=== PATIENT | female | born 1930 | race African-American/Black ===

== ENCOUNTER 2016-07-19 17:22 | Inpatient (IN) | payer MEDICARE ==
--- NOTE | 2016-07-19 19:36 | PDOC H&P ---
History of Present Illness Admission Date/PCP: 07/19/16 17:22 FERNANDA THIBODEAUX Patient complains of: Worsening bilateral leg swelling History of Present Illness: GILA BLISS is a 85 year old female known to my practice who have made weekly visit to the office due to worsening bilateral leg swelling. Despite adjustment in her medication management with regard to diuretics and anti hypertensive medication she continue to deteriorate. Caregiver reported declining functional level due to leg swelling. No chest pain but there is associated exertional shortness of breath. Patient reported 2-3 pillows orthopnea but denied any PND event. Patient and caregiver reported compliance with dietary salt and fluid restriction although caregiver reported noncompliance wit keeping legs elevated. There is worsening difficulty with transfer abilities. No fever, chills, coughing, nausea, vomiting or diarrhea. She does ambulate minimally in recent time with assistance of walker. Past Medical History Cardiac Medical History: Reports: Hypertension Musculoskeltal Medical History: Reports: Arthritis - Osteoarthritis Psychiatric Medical History: Reports: Depression Past Surgical History Past Surgical History: Reports: Orthopedic Surgery - bilateral knee replacement , hip Social History Smoking Status: Never Smoker Frequency of Alcohol Use: Occasional Hx Recreational Drug Use: No Family History Family History: Reviewed & Not Pertinent Parental Family History Reviewed: Yes Children Family History Reviewed: Yes Sibling(s) Family History Reviewed.: Yes Medication/Allergy Home Medications: Amlodipine Besylate [Norvasc 10 mg Tablet] 10 mg PO DAILY #30 11/22/12 Aspirin [Ecotrin 81 mg EC Tablet] 81 mg PO DAILY #30 tabec 11/22/12 Azilsartan Medoxomil [Edarbi] 80 mg PO DAILY #30 11/22/12 Furosemide [Lasix 20 mg Tablet] 20 mg PO QAM 03/19/14 Lisinopril 20 mg PO DAILY 03/19/14 Allergies/Adverse Reactions: duloxetine HCl [From Cymbalta] Allergy (Unknown, Verified 03/19/14 08:21) oxycodone [Oxycodone] Allergy (Unknown, Verified 03/19/14 08:21) Review of Systems Constitutional: PRESENT: weakness - generalized, weight gain - related to excess fluid. ABSENT: as per HPI, anorexia, chills, fatigue, fever(s), headache (s), night sweats, weight loss, other Eyes: ABSENT: visual disturbances Nose, Mouth, and Throat: ABSENT: as per HPI, headache(s), mouth pain, sore throat, vertigo, other Cardiovascular: PRESENT: dyspnea on exertion, edema. ABSENT: as per HPI, chest pain, orthropnea, palpitations, other Respiratory: PRESENT: dyspnea - with efforts Gastrointestinal: ABSENT: abdominal pain, constipation, diarrhea, hematemesis, hematochezia, nausea, vomiting Genitourinary: ABSENT: as per HPI, difficulty urinating, dysuria, hematuria, nocturia, other Musculoskeletal: PRESENT: deformity - related to arthritis, joint swelling - related to leg swelling Integumentary: ABSENT: rash, wounds Neurological: PRESENT: weakness - generalized. ABSENT: as per HPI, abnormal gait, abnormal movements, abnormal speech, confusion, convulsions, dizziness, focal weakness, frequent falls, lack of coordination, memory loss, numbness, paresthesias, restless legs, syncope, tingling, tremor(s), vertigo, other Psychiatric: ABSENT: anxiety, depression, homidical ideation, suicidal ideation Endocrine: ABSENT: cold intolerance, heat intolerance, polydipsia, polyuria Hematologic/Lymphatic: ABSENT: easy bleeding, easy bruising, lymphadenopathy Physical Exam Vital Signs: Temp Pulse Resp BP Pulse Ox 97.3 F 54 L 18 140/54 H 97 07/19/16 18:35 07/19/16 18:35 07/19/16 18:35 07/19/16 18:35 07/19/16 18:35 Intake & Output 07/18/16 07/19/16 07/20/16 06:59 06:59 06:59 Weight 84 kg General appearance: PRESENT: no acute distress, cooperative Head exam: PRESENT: atraumatic, normocephalic Eye exam: PRESENT: conjunctiva pink, EOMI, PERRLA. ABSENT: scleral icterus Ear exam: PRESENT: normal external ear exam Mouth exam: PRESENT: moist, tongue midline Neck exam: PRESENT: full ROM. ABSENT: carotid bruit, JVD, lymphadenopathy, thyromegaly Respiratory exam: PRESENT: clear to auscultation main Cardiovascular exam: PRESENT: irregular rhythm, systolic murmur. ABSENT: bradycardia, clicks, diastolic murmur, gallop, RRR, rubs, +S1, +S2, tachycardia , other Murmur grade: 3 Pulses: PRESENT: normal dorsalis pedis pul, +2 pedal pulses bilateral Vascular exam: PRESENT: normal capillary refill GI/Abdominal exam: PRESENT: normal bowel sounds, soft. ABSENT: distended, guarding, mass, organolmegaly, rebound, tenderness Rectal exam: PRESENT: deferred Extremities exam: PRESENT: pedal edema - bilateral 3+ pitting edema above knee joint level Musculoskeletal exam: PRESENT: deformity - related to joint involvement with arthritis Neurological exam: PRESENT: alert, awake, oriented to person, oriented to place , oriented to time, oriented to situation, abnormal gait - remain in wheelchair duroing evaluation in office and caregiver reported difficulty transferring in and out of vehicle Psychiatric exam: PRESENT: appropriate affect, normal mood. ABSENT: homicidal ideation, suicidal ideation Skin exam: PRESENT: dry - scaly to legs, warm Results Laboratory Results: Please review on [facility]. These form [id number] part of my medical decision making. Impressions: Chest X-Ray 07/19/16 00:00 IMPRESSION: CARDIAC ENLARGEMENT WITHOUT FAILURE. Assessment & Plan - Diagnosis (1) Acute on chronic systolic (congestive) heart failure Is this a current diagnosis for this admission?: YesPlan: See admitting physician orders. (2) HTN (hypertension) Qualifiers: Hypertension type: essential hypertension Qualified Code(s): I10 - Essential (primary) hypertension Is this a current diagnosis for this admission?: YesPlan: See admitting physician orders. (3) Osteoarthritis involving multiple joints on both sides of body Is this a current diagnosis for this admission?: YesPlan: See admitting physician orders. (4) Chronic pain syndrome Is this a current diagnosis for this admission?: YesPlan: See admitting physician orders. (5) Osteoporosis Qualifiers: Osteoporosis type: age-related Presence of current pathological fracture: unspecified Qualified Code(s): M81.0 - Age-related osteoporosis without current pathological fracture Is this a current diagnosis for this admission?: YesPlan: See admitting physician orders. (6) Degenerative disc disease Qualifiers: Mid-cervical spinal level: unspecified Is this a current diagnosis for this admission?: YesPlan: See admitting physician orders. (7) Unsteady gait Is this a current diagnosis for this admission?: YesPlan: See admitting physician orders. (8) Seasonal allergic rhinitis Qualifiers: Allergic rhinitis trigger: unspecified Qualified Code(s): J30.2 - Other seasonal allergic rhinitis Is this a current diagnosis for this admission?: YesPlan: See admitting physician orders. (9) Chronic gout Qualifiers: Gout site: unspecified site Gout etiology: unspecified cause Presence of tophus: without tophus Qualified Code(s): M1A.9XX0 - Chronic gout, unspecified, without tophus (tophi) Is this a current diagnosis for this admission?: YesPlan: See admitting physician orders. (10) Depression Qualifiers: Depression Type: major depressive disorder Active/Remission status: remission status unspecified Is this a current diagnosis for this admission?: YesPlan: See admitting physician orders. (11) Chronic constipation Is this a current diagnosis for this admission?: YesPlan: See admitting physician orders. - Time Time Spent: 50 to 70 Minutes Medications reviewed and adjusted accordingly: Yes Anticipated discharge: Home with Homehealth Within: Other - Inpatient Certification Based on my medical assessment, after consideration of the patient's comorbidities, presenting symptoms, or acuity I expect that the services needed warrant INPATIENT care.: Yes I certify that my determination is in accordance with my understanding of Medicare's requirements for reasonable and necessary INPATIENT services [42 CFR 412.3e].: Yes Medical Necessity: Failure to Improve With Outpatient Therapy - despite diuretic and anti hypertensive medication adjustment., Need Close Monitoring Due to Risk of Patient Decompensation, Need For Continuous Telemetry Monitoring , Risk of Complication if Not Cared For in Hospital Post Hospital Care: D/C Material Man Documentation - Plan Summary Plan Summary: See admitting physician orders.
[2016-07-19 20:03] LABS: ABSOLUTE EOSINOPHILS # (AUTO) 0.2 10^3/uL (0.0-0.6); ABSOLUTE LYMPHOCYTES (AUTO) 0.9 10^3/uL (0.5-4.7); ABSOLUTE MONOCYTES (AUTO) 0.9 10^3/uL (0.1-1.4); ABSOLUTE NEUT (AUTO) 4.6 10^3/uL (1.7-8.2); BASOPHILS % (AUTO) 0.6 % (0-2); EOSINOPHILS % (AUTO) 2.3 % (0-6); HEMATOCRIT 30.5 % (36.0-47.0); HEMOGLOBIN 9.8 g/dL (12.0-15.5); HGB HCT DIFFERENCE -1.1; LYMPHOCYTES % (AUTO) 14.3 % (13-45); MEAN CORPUSCULAR HGB CONC 32.1 g/dL (32.0-36.0); MEAN CORPUSCULAR VOLUME 69 fl (80-97); MONOCYTES % (AUTO) 13.2 % (3-13); RED BLOOD COUNT 4.46 10^6/uL (3.72-5.28); RED CELL DISTRIBUTION WIDTH 15.3 % (11.5-14.0); SEGMENTED NEUTROPHILS % (AUTO) 69.6 % (42-78); WHITE BLOOD COUNT 6.6 10^3/uL (4.0-10.5)
[2016-07-19 20:27] LABS: ALANINE AMINOTRANSFERASE 23 U/L (9-52); ALBUMIN 3.2 g/dL (3.5-5.0); ALKALINE PHOSPHATASE 166 U/L (38-126); ANION GAP 14 (5-19); ASPARTATE AMINO TRANSFERASE 35 U/L (14-36); BILIRUBIN,DIRECT 0.4 mg/dL (0.0-0.4); BILIRUBIN,TOTAL 0.6 mg/dL (0.2-1.3); BLOOD UREA NITROGEN 82 mg/dL (7-20); CARBON DIOXIDE 19 mmol/L (22-30); CHLORIDE 107 mmol/L (98-107); CREATINE KINASE 151 U/L (30-135); CREATININE RESULT 4.77 mg/dL (0.52-1.25); GLUCOSE 115 mg/dL (75-110); POTASSIUM 4.5 mmol/L (3.6-5.0); SODIUM 139.6 mmol/L (137-145); TOTAL PROTEIN 6.3 g/dL (6.3-8.2); URIC ACID 3.3 mg/dL (2.5-7.5)
[2016-07-19 20:35] LABS: CREATINE KINASE MB 2.1 ng/mL (<4.55); TROPONIN I 0.025 ng/mL
[2016-07-19] MEDS ORDERED: ENOXAPARIN SODIUM INJ 30 MG/0.3 ML DISP.SYRIN SUBCUT ONE (21:30)
[2016-07-19] MEDS: FUROSEMIDE INJ/PF 40 MG/4 ML SDV IV SCH (21:58)
[2016-07-20 09:43] LABS: APPEARANCE,URINE CLEAR; BILIRUBIN,URINE NEGATIVE (NEGATIVE); GLUCOSE, URINE NEGATIVE (NEGATIVE); KETONES,URINE NEGATIVE (NEGATIVE); LEUKOCYTE ESTERASE,URINE TRACE (NEGATIVE); NITRITE,URINE NEGATIVE (NEGATIVE); PROTEIN,URINE 100 mg/dL (NEGATIVE); URINE SPECIFIC GRAVITY 1.006; UROBILINOGEN,URINE NEGATIVE mg/dL (<2.0)
[2016-07-20] MEDS: LANSOPRAZOLE 30 MG TAB.RAP.DR PO SCH (09:55)
[2016-07-20] MEDS: ENOXAPARIN SODIUM INJ 30 MG/0.3 ML DISP.SYRIN SUBCUT SCH (09:56)
[2016-07-20] MEDS: FUROSEMIDE INJ/PF 40 MG/4 ML SDV IV SCH ×2 (10:09→21:57)
--- NOTE | 2016-07-20 13:25 | PDOC PROGRESS REPORT ---
Subjective Progress Note for:: 07/20/16 Subjective:: Patient denied any chest pain or difficulty with breathing. No nausea, vomiting , or abdominal pain. No fever or chills. Leg swelling do persist. Patient reported some degree of pain in both legs prior to admission. She denied any recent trauma, instrumentation, or surgery. Physical Exam Vital Signs: Temp Pulse Resp BP Pulse Ox 98.6 F 59 L 16 108/46 L 96 07/20/16 07:38 07/20/16 07:38 07/20/16 07:38 07/20/16 07:38 07/20/16 07:38 Intake & Output 07/19/16 07/20/16 07/21/16 06:59 06:59 06:59 Intake Total 125 Output Total 1700 Balance -1575 Weight 82.9 kg General appearance: PRESENT: no acute distress, well-developed, well-nourished Head exam: PRESENT: atraumatic, normocephalic Eye exam: PRESENT: conjunctiva pink, EOMI, PERRLA. ABSENT: scleral icterus Neck exam: PRESENT: full ROM. ABSENT: carotid bruit, JVD, lymphadenopathy, thyromegaly Respiratory exam: PRESENT: clear to auscultation main, decreased breath sounds - at lung bases Cardiovascular exam: PRESENT: RRR. ABSENT: diastolic murmur, rubs, systolic murmur Murmur grade: 3 GI/Abdominal exam: PRESENT: normal bowel sounds, soft. ABSENT: distended, guarding, mass, organolmegaly, rebound, tenderness Gentrourinary exam: PRESENT: indwelling catheter Extremities exam: PRESENT: pedal edema - 3+ to above knee levels Musculoskeletal exam: PRESENT: deformity - related to joint involvement with arthritis Neurological exam: PRESENT: alert, awake, oriented to person, oriented to place , oriented to time, oriented to situation, CN II-XII grossly intact Psychiatric exam: PRESENT: appropriate affect, normal mood. ABSENT: homicidal ideation, suicidal ideation Skin exam: PRESENT: dry, warm Results Laboratory Results: 07/19/16 19:50 07/19/16 19:50 07/19/16 07/19/16 07/20/16 19:50 19:50 09:10 WBC 6.6 RBC 4.46 Hgb 9.8 L Hct 30.5 L MCV 69 L MCH 22.0 L MCHC 32.1 RDW 15.3 H Plt Count 196 Seg Neutrophils % 69.6 Lymphocytes % 14.3 Monocytes % 13.2 H Eosinophils % 2.3 Basophils % 0.6 Absolute Neutrophils 4.6 Absolute Lymphocytes 0.9 Absolute Monocytes 0.9 Absolute Eosinophils 0.2 Absolute Basophils 0.0 Sodium 139.6 Potassium 4.5 Chloride 107 Carbon Dioxide 19 L Anion Gap 14 BUN 82 H Creatinine 4.77 H Est GFR ( Amer) 10 L Est GFR (Non-Af Amer) 9 L Glucose 115 H Uric Acid 3.3 Calcium 9.0 Total Bilirubin 0.6 AST 35 ALT 23 Alkaline Phosphatase 166 H Total Protein 6.3 Albumin 3.2 L Urine Color STRAW Urine Appearance CLEAR Urine pH 6.0 Ur Specific [place] 1.006 Urine Protein 100 H Urine Glucose (UA) NEGATIVE Urine Ketones NEGATIVE Urine Blood MODERATE H Urine Nitrite NEGATIVE Ur Leukocyte Esterase TRACE H Urine WBC (Auto) 8 Urine RBC (Auto) 49 07/19/16 07/19/16 19:50 19:50 Creatine Kinase 151 H CK-MB (CK-2) 2.10 Troponin I 0.025 NT-Pro-B Natriuret Pep 3170 H Impressions: Chest X-Ray 07/19/16 00:00 IMPRESSION: CARDIAC ENLARGEMENT WITHOUT FAILURE. Venous Doppler Study 07/20/16 00:00 IMPRESSION: NO EVIDENCE DVT OR SVT IN EITHER LEG. Assessment & Plan - Diagnosis (1) Acute on chronic systolic (congestive) heart failure Is this a current diagnosis for this admission?: YesPlan: See attending physician orders. (2) HTN (hypertension) Qualifiers: Hypertension type: essential hypertension Qualified Code(s): I10 - Essential (primary) hypertension Is this a current diagnosis for this admission?: YesPlan: See attending physician orders. (3) Osteoarthritis involving multiple joints on both sides of body Is this a current diagnosis for this admission?: YesPlan: See attending physician orders. (4) Chronic pain syndrome Is this a current diagnosis for this admission?: YesPlan: See attending physician orders. (5) Osteoporosis Qualifiers: Osteoporosis type: age-related Presence of current pathological fracture: unspecified Qualified Code(s): M81.0 - Age-related osteoporosis without current pathological fracture Is this a current diagnosis for this admission?: YesPlan: See attending physician orders. (6) Degenerative disc disease Qualifiers: Mid-cervical spinal level: unspecified Is this a current diagnosis for this admission?: YesPlan: See attending physician orders. (7) Unsteady gait Is this a current diagnosis for this admission?: YesPlan: See attending physician orders. (8) Seasonal allergic rhinitis Qualifiers: Allergic rhinitis trigger: unspecified Qualified Code(s): J30.2 - Other seasonal allergic rhinitis Is this a current diagnosis for this admission?: YesPlan: See attending physician orders. (9) Chronic gout Qualifiers: Gout site: unspecified site Gout etiology: unspecified cause Presence of tophus: without tophus Qualified Code(s): M1A.9XX0 - Chronic gout, unspecified, without tophus (tophi) Is this a current diagnosis for this admission?: YesPlan: See attending physician orders. (10) Depression Qualifiers: Depression Type: major depressive disorder Active/Remission status: remission status unspecified Is this a current diagnosis for this admission?: YesPlan: See attending physician orders. (11) Chronic constipation Is this a current diagnosis for this admission?: YesPlan: See attending physician orders. (12) Acute on chronic kidney failure Is this a current diagnosis for this admission?: YesPlan: See attending physician orders. - Time Time Spent with patient: 25-34 minutes Medications reviewed and adjusted accordingly: Yes Anticipated discharge: Home with Homehealth Within: Other - Inpatient Certification Medical Necessity: Need Close Monitoring Due to Risk of Patient Decompensation, Need For Continuous Telemetry Monitoring, Risk of Complication if Not Cared For in Hospital Post Hospital Care: D/C Digital Specialist Documentation - Plan Summary Plan Summary: See attending physician orders.
[2016-07-20] MEDS ORDERED: ALBUTEROL SULFATE HFA (90 MCG/PUFF) 8 GM MDI (1 MDI/ER DISP) IH PRN (17:29)
[2016-07-20] MEDS ORDERED: ALBUTEROL SULFATE HFA (90 MCG/PUFF) 200 PUFF/8.5 GM MDI IH PRN (17:53)
--- NOTE | 2016-07-20 19:42 | XCELERA REPORT ---
[address] [address] Transthoracic Echocardiogram Report Name: GILA BLISS Age: 85 yrs Gender: Female : 1930 Patient Status: Inpatient Patient Location: [id number]\S\335\S\A Study Date: 07/20/2016 10:35 AM Height: 71 in Weight: 182 lb BSA: 2.0 m2 Procedure: A complete two-dimensional transthoracic echocardiogram was performed (2D, M-mode, spectral and color flow Doppler). The study was technically adequate with some images being suboptimal in quality. Reason For Study: CHF Ordering Physician: FERNANDA THIBODEAUX Performed By: Carolyn Mcclelland Interpretation Summary The left ventricular ejection fraction is normal. There is borderline concentric left ventricular hypertrophy. Doppler measurements suggest pseudonormalized left ventricular relaxation, which is associated with grade II/IV or mild to moderate diastolic dysfunction The left ventricle is grossly normal size. Wall motion cannot be accurately commented on, but no definite regional wall motion abnormalities noted. The right ventricle appears to be hypertrophied The right ventricular systolic function is mildly reduced. The right ventricle is grossly normal size. Borderline right atrial enlargement. There is no mitral stenosis There is a trace amount of mitral regurgitation There is a mild amount of aortic regurgitation There is no aortic valve stenosis There is a mild amount of tricuspid regurgitation There is moderate pulmonary hypertension by echo Right ventricular systolic pressure is estimated to be elevated at 50- 60mmHg. The aortic root is not well visualized but is probably normal size. The inferior vena cava appeared normal and decreased > 50% with respiration (RAP 5-10 mmHg) Minimal pericardial effusion. MMode/2D Measurements \T\ Calculations RVDd: 2.4 cm LVIDd: 4.8 cm FS: 39.4 % Ao root diam: 3.3 cm IVSd: 0.97 cm LVIDs: 2.9 cm EDV(Teich): 107.7 ml LVPWd: 0.96 cmESV(Teich): 32.5 ml Ao root area: 8.6 cm2 EF(Teich): 69.8 % LA dimension: 3.1 cm LVOT diam: 2.1 cm LVOT area: 3.6 cm2 Doppler Measurements \T\ Calculations MV E max uriah: MV P1/2t max uriah: Ao V2 max: AI max uriah: 97.7 cm/sec 96.7 cm/sec 187.6 cm/sec 311.3 cm/sec MV A max uriah: MV P1/2t: 76.7 msec Ao max PG: AI max P.7 cm/sec MVA(P1/2t): 2.9 cm2 14.1 mmHg 38.8 mmHg MV E/A: 0.96 MV dec slope: DIEGO(V,D): 2.2 cm2 AI dec slope: 369.4 cm/sec2 106.1 cm/sec2 AI P1/2t: 859.0 msec LV V1 max PG: PA V2 max: TR max uriah: 5.1 mmHg 77.0 cm/sec 355.1 cm/sec LV V1 max: PA max P.4 mmHg TR max P.6 cm/sec 50.4 mmHg Left Ventricle The left ventricle is grossly normal size. There is borderline concentric left ventricular hypertrophy. The left ventricular ejection fraction is normal. Doppler measurements suggest pseudonormalized left ventricular relaxation, which is associated with grade II/IV or mild to moderate diastolic dysfunction. Wall motion cannot be accurately commented on, but no definite regional wall motion abnormalities noted. Right Ventricle The right ventricle is grossly normal size. The right ventricle appears to be hypertrophied. The right ventricular systolic function is mildly reduced. Atria Borderline right atrial enlargement. The left atrial size is normal. Interarterial septum not well visualized and not well dopplered. Cannot comment on ASD/PFO presence. Mitral Valve There is mild mitral leaflet calcification. There is mild mitral annular calcification. There is no mitral stenosis. There is a trace amount of mitral regurgitation. Aortic Valve The aortic valve is mildly calcified. There is no aortic valve stenosis. There is a mild amount of aortic regurgitation. Tricuspid Valve The tricuspid valve is not well visualized, but is grossly normal. There is no tricuspid stenosis. There is a mild amount of tricuspid regurgitation. There is moderate pulmonary hypertension by echo. Right ventricular systolic pressure is estimated to be elevated at 50-60mmHg. Pulmonic Valve The pulmonic valve is not well visualized. Great Vessels The aortic root is not well visualized but is probably normal size. The inferior vena cava appeared normal and decreased > 50% with respiration (RAP 5-10 mmHg). Effusions Minimal pericardial effusion. : FERNANDA THIBODEAUX > Enrique Barrett
--- NOTE | 2016-07-20 19:48 | PDOC CONSULTATION ---
Consultation Consult Date: 07/20/16 Attending physician:: FERNANDA THIBODEAUX Consult reason:: I was asked by Dr. Thibodeaux is to see the patient because of renal failure. History of Present Illness Admission Date/PCP: 07/19/16 17:22 FERNANDA THIBODEAUX History of Present Illness: GILA BLISS is a 85 year old female with history of hypertension who have made weekly visit to Dr. Thibodeaux's office due to worsening bilateral leg swelling. Despite adjustment in her medication management with regard to diuretics and anti hypertensive medication she continued to deteriorate. Caregiver reported declining functional level due to leg swelling. No chest pain but there is associated exertional shortness of breath. Patient reported 2- 3 pillows orthopnea but denied any PND event. Patient and caregiver reported compliance with dietary salt and fluid restriction although caregiver reported noncompliance wit keeping legs elevated. There is worsening difficulty with transfer abilities. No fever, chills, coughing, nausea, vomiting or diarrhea. She does ambulate minimally in recent time with assistance of walker. Further history reveals that the patient has been having this lower extremity edema which is been progressively worse for the last 2-3 weeks. She was noted by her granddaughter to be sleeping a lot and has decreased appetite. Her granddaughter and daughter were in the room at bedside while I was talking to the patient. Both of them confirmed that the patient has some occasional confusion. Otherwise the patient denies any chest pains, shortness of breath, fatigue, nor any tremors. The family including the patient denied any known kidney problems in the past including kidney stones, hematuria, nor any problem with urination. Daughter said the patient is making good amount of urine. She has a home health nurse who checks on her. Upon admission last night she had a BUN of 82 and creatinine of 4.77 with estimated GFR of 10. The last kidney function on her records were from November 2012 were her BUN run ranged between 30-32 and her creatinine between 1.65-1.94 with estimated GFR of 30-36. Patient has evidence of anemia and mild metabolic acidosis. Her chest x-ray did not reveal any evidence of congestive heart failure. Her urinalysis showed mild proteinuria with questionable blood in the urine because this is most likely from catheterized specimen. Her Doppler did not reveal any DVT of her lower extremities. Her kidney ultrasound showed bilateral small kidneys with the right kidney measuring 7.6 cm and left kidney measuring 8.4 cm with bilateral cysts. Cysts on the right kidney measures 1.03 x 0.8 cm and the left measures 4.6 x 4.18 cm. There is no hydronephrosis. Past Medical History Cardiac Medical History: Reports: Hypertension-primary GI Medical History: Reports: Other - Chronic constipation Musculoskeltal Medical History: Reports: Arthritis - Osteoarthritis, Gout, Other - Osteoporosis Psychiatric Medical History: Reports: Depression Past Surgical History Past Surgical History: Reports: Orthopedic Surgery - bilateral knee replacement , hip replacement Social History Information Source: Patient Lives with: Family - Next few Smoking Status: Never Smoker Frequency of Alcohol Use: None Hx Recreational Drug Use: No Family History Family History: DM - Children, Hypertension - Children, Other - Heart disease on her daughter Parental Family History Reviewed: Yes Children Family History Reviewed: Yes Sibling(s) Family History Reviewed.: Yes Medication/Allergy Home Medications: Acetaminophen [Tylenol Extra Strength 500 mg Tablet] 1,000 mg PO Q8HP PRN Albuterol Sulfate [Proair HFA] 1 puff IH Q4HP PRN 07/20/16 Allopurinol [Zyloprim 100 mg Tablet] 100 mg PO DAILY 07/20/16 Amlodipine Besylate [Norvasc 10 mg Tablet] 10 mg PO DAILY 07/20/16 Bumetanide [Bumex 1 mg Tablet] 1 mg PO DAILY 07/20/16 Febuxostat [Uloric 40 mg Tablet] 40 mg PO DAILY 07/20/16 Furosemide [Lasix] 40 mg PO DAILY 07/20/16 Gabapentin [Neurontin] 600 mg PO TID 07/20/16 Sertraline HCl [Zoloft] 25 mg PO DAILY 07/20/16 Tramadol HCl [Ultram 50 mg Tablet] 50 mg PO DAILYP PRN 07/20/16 Allergies/Adverse Reactions: duloxetine HCl [From Cymbalta] Allergy (Unknown, Verified 03/19/14 08:21) oxycodone [Oxycodone] Allergy (Unknown, Verified 03/19/14 08:21) Review of Systems All systems: reviewed and no additional remarkable complaints except as stated Review of Systems: Constitutional: ABSENT: chills, fatigue, fever(s), headache(s), weight gain, weight loss Eyes: ABSENT: visual disturbances Ears: ABSENT: hearing changes Cardiovascular: ABSENT: chest pain, dyspnea on exertion, orthropnea, palpitations; progressively worsening lower extremity edema Respiratory: ABSENT: cough, dyspnea, hemoptysis Gastrointestinal: ABSENT: abdominal pain, constipation, diarrhea, hematemesis, hematochezia, nausea, vomiting Genitourinary: ABSENT: dysuria, hematuria Musculoskeletal: ABSENT: joint swelling Integumentary: ABSENT: rash, wounds Neurological: ABSENT: abnormal gait, abnormal speech, dizziness, focal weakness , numbness, syncope; patient was noted to sleep a lot and notes some occasional confusion Psychiatric: ABSENT: anxiety, depression Endocrine: ABSENT: cold intolerance, heat intolerance, polydipsia, polyuria Hematologic/Lymphatic: ABSENT: easy bleeding, easy bruising, lymphadenopathy Physical Exam Vital Signs: Temp Pulse Resp BP Pulse Ox 98.0 F 58 L 12 138/49 H 95 07/20/16 15:32 07/20/16 15:32 07/20/16 15:32 07/20/16 15:32 07/20/16 15:32 Intake & Output 07/19/16 07/20/16 07/21/16 06:59 06:59 06:59 Intake Total 125 1007 Output Total 1700 1360 Balance -1575 -353 Weight 82.9 kg Exam: General appearance: no acute distress, cooperative, well-developed, well- nourished Head exam: PRESENT: atraumatic, normocephalic Eye exam: PRESENT: Conjunctiva pale, EOMI, PERRLA. ABSENT: conjunctival injection, scleral icterus Mouth exam: PRESENT: moist, neck supple, tongue midline Neck exam: PRESENT: full ROM. ABSENT: carotid bruit, JVD, lymphadenopathy, thyromegaly Respiratory exam: PRESENT: Diminished to auscultation bilaterally. ABSENT: rales, rhonchi, stridor, wheezes Cardiovascular exam: PRESENT: RRR, +S1, +S2. ABSENT: systolic murmur Pulses: PRESENT: normal radial pulses, normal dorsalis pedis pulses GI/Abdominal exam: PRESENT: normal bowel sounds, soft. ABSENT: guarding, mass, tenderness Rectal exam: deferred Extremities exam: PRESENT: full ROM. Grade 3 bilateral lower extremity peaking edema ABSENT: calf tenderness Musculoskeletal: PRESENT: full ROM. ABSENT: deformity Neurological exam: PRESENT: alert, Awake, Oriented to person, Oriented to place , Oriented to time, reflexes normal, CN II-XII grossly intact. ABSENT: motor sensory deficit Psychiatric exam: PRESENT: appropriate affect, normal mood. ABSENT: homicidal ideation, suicidal ideation Skin exam: PRESENT: intact, dry, warm. ABSENT: rash Results Laboratory Results: 07/19/16 19:50 07/19/16 19:50 07/19/16 07/19/16 07/20/16 19:50 19:50 09:10 WBC 6.6 RBC 4.46 Hgb 9.8 L Hct 30.5 L MCV 69 L MCH 22.0 L MCHC 32.1 RDW 15.3 H Plt Count 196 Seg Neutrophils % 69.6 Lymphocytes % 14.3 Monocytes % 13.2 H Eosinophils % 2.3 Basophils % 0.6 Absolute Neutrophils 4.6 Absolute Lymphocytes 0.9 Absolute Monocytes 0.9 Absolute Eosinophils 0.2 Absolute Basophils 0.0 Sodium 139.6 Potassium 4.5 Chloride 107 Carbon Dioxide 19 L Anion Gap 14 BUN 82 H Creatinine 4.77 H Est GFR ( Amer) 10 L Est GFR (Non-Af Amer) 9 L Glucose 115 H Uric Acid 3.3 Calcium 9.0 Total Bilirubin 0.6 AST 35 ALT 23 Alkaline Phosphatase 166 H Total Protein 6.3 Albumin 3.2 L Urine Color STRAW Urine Appearance CLEAR Urine pH 6.0 Ur Specific [place] 1.006 Urine Protein 100 H Urine Glucose (UA) NEGATIVE Urine Ketones NEGATIVE Urine Blood MODERATE H Urine Nitrite NEGATIVE Ur Leukocyte Esterase TRACE H Urine WBC (Auto) 8 Urine RBC (Auto) 49 07/19/16 07/19/16 19:50 19:50 Creatine Kinase 151 H CK-MB (CK-2) 2.10 Troponin I 0.025 NT-Pro-B Natriuret Pep 3170 H 11/19/12 11/22/12 14:36 04:25 BUN 30 H 32 H Creatinine 1.65 H 1.94 H Est GFR ( Amer) 36 L 30 L Impressions: Chest X-Ray 07/19/16 00:00 IMPRESSION: CARDIAC ENLARGEMENT WITHOUT FAILURE. Renal Ultrasound 07/20/16 00:00 IMPRESSION: Bilateral kidneys are slightly small in size on ultrasound. Appears to be simple cysts bilaterally. No hydronephrosis. No renal calculi. No definite mass lesions identified. Bladder decompressed with Velez. Venous Doppler Study 07/20/16 00:00 IMPRESSION: NO EVIDENCE DVT OR SVT IN EITHER LEG. Assessment & Plan - Diagnosis (1) Chronic kidney disease, stage V Is this a current diagnosis for this admission?: YesPlan: Patient most likely has progressively deteriorating chronic kidney disease and now it is stage V. She has mild proteinuria and questionable microhematuria. This is most likely secondary to hypertensive nephrosclerosis. Patient is starting uremic symptoms including somnolence, confusion, and progressive lower extremity edema almost resistant to diuresis her history. The anemia, metabolic acidosis and small size kidneys also reported diagnosis of chronic kidney disease. I think the patient is at the point that she would need to be initiated on renal replacement therapy. So today I spoke to the patient in the presence of one of her daughters Remedios and granddaughter as well as another daughter Jessica who is a nurse practitioner on the speaker phone about my assessment and recommendations. Discussed with them at this point we need to initiate renal replacement therapy. Discussed benefits and risks of hemodialysis treatment including infection, bleeding, hemodynamic changes including acute cardiac events on dialysis. Discussed with them the need for vascular access is specifically a PermCath since the fistula or graft we'll take time before it can be used. For the patient I don't think peritoneal dialysis a good option and the daughters and granddaughter agreed. Patient's family all agreed for initiation of hemodialysis treatment but the patient herself would like to think about it and discuss with her family. So we will wait for the patient's final decision. If she agrees we will need to ask the vascular vascular surgeon to put a PermCath and and possibly her first dialysis will be on Monday. All questions are answered today. Continue IV diuresis with current dose of Lasix which patient seems to be responding pretty well. Continue to monitor kidney function and intake and output. I will order some labs to determine any other complications of kidney disease as well as hepatitis panel to prepare her for eventuality of initiating dialysis. (2) Hypertensive nephrosclerosis Is this a current diagnosis for this admission?: Yes (3) Hypervolemia Is this a current diagnosis for this admission?: YesPlan: Continue Lasix. (4) Metabolic acidosis Is this a current diagnosis for this admission?: YesPlan: Mild secondary to CKD. (5) Anemia in chronic kidney disease (CKD) Is this a current diagnosis for this admission?: YesPlan: Iron panel is pending. (6) HTN (hypertension) Qualifiers: Hypertension type: essential hypertension Qualified Code(s): I10 - Essential (primary) hypertension Is this a current diagnosis for this admission?: Yes - Notes Notes: Thank you very much for this consultation. I will follow the patient with you. - Time Time Spent: Greater than 70 Minutes
[2016-07-21 07:14] LABS: ANION GAP 9 (5-19); BLOOD UREA NITROGEN 78 mg/dL (7-20); CALCIUM 8.9 mg/dL (8.4-10.2); CARBON DIOXIDE 25 mmol/L (22-30); CHLORIDE 106 mmol/L (98-107); CREATININE RESULT 4.62 mg/dL (0.52-1.25); GLUCOSE 81 mg/dL (75-110); MAGNESIUM 1.8 mg/dL (1.6-2.3); PHOSPHORUS 4.4 mg/dL (2.5-4.5); POTASSIUM 4.1 mmol/L (3.6-5.0)
--- NOTE | 2016-07-21 08:11 | PDOC PROGRESS REPORT ---
Subjective Progress Note for:: 07/21/16 Subjective:: Patient denied any chest pain or difficulty with breathing. No nausea, vomiting , or abdominal pain. No fever or chills. There is some improvement in her bilateral leg swelling. Her DVT evaluation was negative. Her renal ultrasound did revealed medical renal disease changes. with bilateral hypertensive nephrosclerosis features. Physical Exam Vital Signs: Temp Pulse Resp BP Pulse Ox 97.9 F 56 L 22 H 139/51 H 98 07/21/16 04:59 07/21/16 04:59 07/21/16 00:00 07/21/16 04:59 07/21/16 04:59 Intake & Output 07/20/16 07/21/16 07/22/16 06:59 06:59 06:59 Intake Total 125 1012 Output Total 1700 1360 Balance -1575 -348 Weight 82.9 kg Physical Exam: General appearance: PRESENT: no acute distress, well-developed, well-nourished Head exam: PRESENT: atraumatic, normocephalic Eye exam: PRESENT: conjunctiva pink, EOMI, PERRLA. ABSENT: scleral icterus Neck exam: PRESENT: full ROM. ABSENT: carotid bruit, JVD, lymphadenopathy, thyromegaly Respiratory exam: PRESENT: clear to auscultation main, decreased breath sounds - at lung bases Cardiovascular exam: PRESENT: RRR. ABSENT: diastolic murmur, rubs, systolic murmur Murmur grade: 3 GI/Abdominal exam: PRESENT: normal bowel sounds, soft. ABSENT: distended, guarding, mass, organomegaly, rebound, tenderness Gentrourinary exam: PRESENT: indwelling catheter Extremities exam: PRESENT: pedal edema - 3+ to above knee levels Musculoskeletal exam: PRESENT: deformity - related to joint involvement with arthritis Neurological exam: PRESENT: alert, awake, oriented to person, oriented to place , oriented to time, oriented to situation, CN II-XII grossly intact Psychiatric exam: PRESENT: appropriate affect, normal mood. ABSENT: homicidal ideation, suicidal ideation Skin exam: PRESENT: dry, warm Murmur grade: 3 Results Laboratory Results: 07/19/16 19:50 07/20/16 07/21/16 09:10 06:31 Retic Count (auto) 1.09 Absolute Retic 0.043 Urine Color STRAW Urine Appearance CLEAR Urine pH 6.0 Ur Specific [place] 1.006 Urine Protein 100 H Urine Glucose (UA) NEGATIVE Urine Ketones NEGATIVE Urine Blood MODERATE H Urine Nitrite NEGATIVE Ur Leukocyte Esterase TRACE H Urine WBC (Auto) 8 Urine RBC (Auto) 49 07/19/16 07/19/16 19:50 19:50 Creatine Kinase 151 H CK-MB (CK-2) 2.10 Troponin I 0.025 NT-Pro-B Natriuret Pep 3170 H Impressions: Chest X-Ray 07/19/16 00:00 IMPRESSION: CARDIAC ENLARGEMENT WITHOUT FAILURE. Renal Ultrasound 07/20/16 00:00 IMPRESSION: Bilateral kidneys are slightly small in size on ultrasound. Appears to be simple cysts bilaterally. No hydronephrosis. No renal calculi. No definite mass lesions identified. Bladder decompressed with Velez. Venous Doppler Study 07/20/16 00:00 IMPRESSION: NO EVIDENCE DVT OR SVT IN EITHER LEG. Assessment & Plan - Diagnosis (1) HTN (hypertension) Qualifiers: Hypertension type: essential hypertension Qualified Code(s): I10 - Essential (primary) hypertension Is this a current diagnosis for this admission?: Yes (2) Osteoarthritis involving multiple joints on both sides of body Is this a current diagnosis for this admission?: YesPlan: See attending physician orders. (3) Chronic pain syndrome Is this a current diagnosis for this admission?: YesPlan: See attending physician orders. (4) Osteoporosis Qualifiers: Osteoporosis type: age-related Presence of current pathological fracture: unspecified Qualified Code(s): M81.0 - Age-related osteoporosis without current pathological fracture Is this a current diagnosis for this admission?: YesPlan: See attending physician orders. (5) Degenerative disc disease Qualifiers: Mid-cervical spinal level: unspecified Is this a current diagnosis for this admission?: YesPlan: See attending physician orders. (6) Unsteady gait Is this a current diagnosis for this admission?: YesPlan: See attending physician orders. (7) Seasonal allergic rhinitis Qualifiers: Allergic rhinitis trigger: unspecified Qualified Code(s): J30.2 - Other seasonal allergic rhinitis Is this a current diagnosis for this admission?: YesPlan: See attending physician orders. (8) Chronic gout Qualifiers: Gout site: unspecified site Gout etiology: unspecified cause Presence of tophus: without tophus Qualified Code(s): M1A.9XX0 - Chronic gout, unspecified, without tophus (tophi) Is this a current diagnosis for this admission?: YesPlan: See attending physician orders. (9) Depression Qualifiers: Depression Type: major depressive disorder Active/Remission status: remission status unspecified Is this a current diagnosis for this admission?: YesPlan: See attending physician orders. (10) Chronic constipation Is this a current diagnosis for this admission?: YesPlan: See attending physician orders. (11) Acute on chronic kidney failure Is this a current diagnosis for this admission?: YesPlan: See attending physician orders. - Time Time Spent with patient: 25-34 minutes Medications reviewed and adjusted accordingly: Yes Anticipated discharge: Home Within: Other - Inpatient Certification Medical Necessity: Need Close Monitoring Due to Risk of Patient Decompensation, Need For Continuous Telemetry Monitoring, Risk of Complication if Not Cared For in Hospital Post Hospital Care: D/C Irrigator Overhead Documentation - Plan Summary Plan Summary: See attending physician orders. I had extensive discussion with patient and daughters during my visit this morning. Presently she is not willing to have hemodialysis supplementation therapy. I will continue to discuss with her and further explain benefits and risk.
[2016-07-21 08:20] LABS: FOLATE 6.52 ng/mL (>2.76)
[2016-07-21] MEDS: ENOXAPARIN SODIUM INJ 30 MG/0.3 ML DISP.SYRIN SUBCUT SCH (10:57)
[2016-07-21] MEDS: FUROSEMIDE INJ/PF 40 MG/4 ML SDV IV SCH ×2 (10:58→22:41)
[2016-07-21] MEDS: SERTRALINE HCL 50 MG TABLET PO SCH (10:59)
[2016-07-21] MEDS: LANSOPRAZOLE 30 MG TAB.RAP.DR PO SCH (10:59)
--- NOTE | 2016-07-21 15:42 | EKG REPORT ---
SEVERITY:- BORDERLINE ECG - SINUS RHYTHM BORDERLINE R WAVE PROGRESSION, ANTERIOR LEADS BORDERLINE T ABNORMALITIES, ANT-LAT LEADS : Confirmed by: Radha Mcnulty MD 21-Jul-2016 15:41:20
--- NOTE | 2016-07-21 19:27 | PDOC PROGRESS REPORT ---
Subjective Progress Note for:: 07/21/16 Subjective:: Patient says she is feeling fine. She denies any chest pains, shortness of breath, and claims that she is eating although her daughter at bedside tells me that she is not. She seems to have an appropriate mentation although again the daughter tells me it waxes and wanes. I asked the patient regarding her decision with regards to dialysis and she tells me that she is still thinking about it although not absolutely refusing to do it in the future. I answered the questions of all her other family members. So at this time we will do dialysis and respect the patient's wish. They did ask me that eventual outcome of at the agreeing to dialysis if she becomes uremic and her kidney function completely fails and I told him it will be . They all understood. Physical Exam Vital Signs: Temp Pulse Resp BP Pulse Ox 98.4 F 62 20 148/58 H 100 07/21/16 15:45 07/21/16 15:45 07/21/16 15:45 07/21/16 15:45 07/21/16 15:45 Intake & Output 07/20/16 07/21/16 07/22/16 06:59 06:59 06:59 Intake Total 125 1012 720 Output Total 1700 1360 1000 Balance -1575 -348 -280 Weight 82.9 kg Exam: General appearance: PRESENT: no acute distress, cooperative, well-developed, well-nourished Head exam: PRESENT: atraumatic, normocephalic Eye exam: PRESENT: conjunctiva pale, PERRLA. ABSENT: scleral icterus Neck exam: ABSENT: JVD Respiratory exam: PRESENT: Normal breath sounds. ABSENT: crackles, rales, rhonchi, unlabored, wheezes Cardiovascular exam: PRESENT: Regular rate rhythm -+S1, +S2. ABSENT: diastolic murmur, systolic murmur GI/Abdominal exam: PRESENT: normal bowel sounds, soft. ABSENT: guarding, mass, tenderness Extremities exam: Slowly improving grade 2 bilateral pitting edema Neurological exam: PRESENT: alert, awake, oriented to person, place and time. Skin exam: PRESENT: dry, warm, Results Laboratory Results: 07/19/16 19:50 07/21/16 06:31 07/21/16 07/21/16 06:31 06:31 Retic Count (auto) 1.09 Absolute Retic 0.043 Sodium 140.0 Potassium 4.1 Chloride 106 Carbon Dioxide 25 Anion Gap 9 BUN 78 H Creatinine 4.62 H Est GFR ( Amer) 11 L Est GFR (Non-Af Amer) 9 L Glucose 81 Calcium 8.9 Phosphorus 4.4 Magnesium 1.8 Iron 17.5 L TIBC 256 % Saturation 7 Ferritin 181.00 Vitamin B12 > 1000.0 H Folate 6.52 07/19/16 07/19/16 19:50 19:50 Creatine Kinase 151 H CK-MB (CK-2) 2.10 Troponin I 0.025 NT-Pro-B Natriuret Pep 3170 H Impressions: Chest X-Ray 07/19/16 00:00 IMPRESSION: CARDIAC ENLARGEMENT WITHOUT FAILURE. Renal Ultrasound 07/20/16 00:00 IMPRESSION: Bilateral kidneys are slightly small in size on ultrasound. Appears to be simple cysts bilaterally. No hydronephrosis. No renal calculi. No definite mass lesions identified. Bladder decompressed with Velez. Venous Doppler Study 07/20/16 00:00 IMPRESSION: NO EVIDENCE DVT OR SVT IN EITHER LEG. Assessment & Plan - Diagnosis (1) Chronic kidney disease, stage V Is this a current diagnosis for this admission?: YesPlan: Patient most likely has progressively deteriorating chronic kidney disease and now it is stage V. She has mild proteinuria and questionable microhematuria. This is most likely secondary to hypertensive nephrosclerosis. Patient is starting uremic symptoms including somnolence, confusion, and progressive lower extremity edema almost resistant to diuresis her history. The anemia, metabolic acidosis and small size kidneys support the diagnosis of chronic kidney disease. I think the patient is at the point that she would need to be initiated on renal replacement therapy. As mentioned above the patient is not consenting to initiation of dialysis treatment at this time. She said she will continue to think about it not absolutely refusing to do it in the future. All questions answered. Continue IV diuresis with current dose of Lasix which patient seems to be responding pretty well. Continue to monitor kidney function and intake and output. Patient will definitely need to go home with oral Lasix. (2) Hypertensive nephrosclerosis Is this a current diagnosis for this admission?: Yes (3) Hypervolemia Is this a current diagnosis for this admission?: YesPlan: Improving with Lasix. (4) Metabolic acidosis Is this a current diagnosis for this admission?: YesPlan: Resolved. (5) Anemia in chronic kidney disease (CKD) Is this a current diagnosis for this admission?: Yes (6) Iron deficiency anemia Is this a current diagnosis for this admission?: YesPlan: We will give a dose of IV Feraheme today. (7) HTN (hypertension) Qualifiers: Hypertension type: essential hypertension Qualified Code(s): I10 - Essential (primary) hypertension Is this a current diagnosis for this admission?: Yes - Time Time with patient: 15-25 minutes
[2016-07-21] MEDS ORDERED: FERUMOXYTOL 510 MG in NORMAL SALINE 100 ML IV ONE (21:00)
[2016-07-22] MEDS: ENOXAPARIN SODIUM INJ 30 MG/0.3 ML DISP.SYRIN SUBCUT SCH (09:15)
[2016-07-22] MEDS: FUROSEMIDE INJ/PF 40 MG/4 ML SDV IV SCH ×2 (09:16→21:54)
[2016-07-22] MEDS: LANSOPRAZOLE 30 MG TAB.RAP.DR PO SCH (09:16)
[2016-07-22] MEDS: SERTRALINE HCL 50 MG TABLET PO SCH (09:16)
[2016-07-22 11:24] LABS: PTH INTACT 271 pg/mL (15-65)
--- NOTE | 2016-07-22 15:55 | PDOC PROGRESS REPORT ---
Subjective Progress Note for:: 07/22/16 Subjective:: Patient denied any chest pain or difficulty with breathing. No nausea, vomiting , or abdominal pain. No fever or chills. There is some improvement in her bilateral leg swelling. Physical Exam Vital Signs: Temp Pulse Resp BP Pulse Ox 97.5 F 58 L 20 161/94 H 99 07/22/16 12:45 07/22/16 12:45 07/22/16 12:45 07/22/16 12:45 07/22/16 12:45 Intake & Output 07/21/16 07/22/16 07/23/16 06:59 06:59 06:59 Intake Total 1012 1130 240 Output Total 1360 3200 1000 Balance -348 -2070 -760 Physical Exam: General appearance: PRESENT: no acute distress, well-developed, well-nourished Head exam: PRESENT: atraumatic, normocephalic Eye exam: PRESENT: conjunctiva pink, EOMI, PERRLA. ABSENT: scleral icterus Neck exam: PRESENT: full ROM. ABSENT: carotid bruit, JVD, lymphadenopathy, thyromegaly Respiratory exam: PRESENT: clear to auscultation main, decreased breath sounds - at lung bases Cardiovascular exam: PRESENT: RRR. ABSENT: diastolic murmur, rubs, systolic murmur Murmur grade: 3 GI/Abdominal exam: PRESENT: normal bowel sounds, soft. ABSENT: distended, guarding, mass, organomegaly, rebound, tenderness Extremities exam: PRESENT: improving bilateral pedal edema Musculoskeletal exam: PRESENT: deformity - related to joint involvement with arthritis Neurological exam: PRESENT: alert, awake, oriented to person, oriented to place , oriented to time, oriented to situation, CN II-XII grossly intact Psychiatric exam: PRESENT: appropriate affect, normal mood. ABSENT: homicidal ideation, suicidal ideation Skin exam: PRESENT: dry, warm Murmur grade: 3 Murmur grade: 3 Results Laboratory Results: 07/19/16 19:50 07/21/16 06:31 07/21/16 07/21/16 06:31 06:31 Transferrin 189 L PTH Intact 271 H 07/19/16 07/19/16 19:50 19:50 Creatine Kinase 151 H CK-MB (CK-2) 2.10 Troponin I 0.025 NT-Pro-B Natriuret Pep 3170 H Impressions: Chest X-Ray 07/19/16 00:00 IMPRESSION: CARDIAC ENLARGEMENT WITHOUT FAILURE. Renal Ultrasound 07/20/16 00:00 IMPRESSION: Bilateral kidneys are slightly small in size on ultrasound. Appears to be simple cysts bilaterally. No hydronephrosis. No renal calculi. No definite mass lesions identified. Bladder decompressed with Velez. Venous Doppler Study 07/20/16 00:00 IMPRESSION: NO EVIDENCE DVT OR SVT IN EITHER LEG. Assessment & Plan - Diagnosis (1) HTN (hypertension) Qualifiers: Hypertension type: essential hypertension Qualified Code(s): I10 - Essential (primary) hypertension Is this a current diagnosis for this admission?: YesPlan: See attending physician orders. (2) Osteoarthritis involving multiple joints on both sides of body Is this a current diagnosis for this admission?: YesPlan: See attending physician orders. (3) Chronic pain syndrome Is this a current diagnosis for this admission?: YesPlan: See attending physician orders. (4) Osteoporosis Qualifiers: Osteoporosis type: age-related Presence of current pathological fracture: unspecified Qualified Code(s): M81.0 - Age-related osteoporosis without current pathological fracture Is this a current diagnosis for this admission?: YesPlan: See attending physician orders. (5) Degenerative disc disease Qualifiers: Mid-cervical spinal level: unspecified Is this a current diagnosis for this admission?: YesPlan: See attending physician orders. (6) Unsteady gait Is this a current diagnosis for this admission?: YesPlan: See attending physician orders. (7) Seasonal allergic rhinitis Qualifiers: Allergic rhinitis trigger: unspecified Qualified Code(s): J30.2 - Other seasonal allergic rhinitis Is this a current diagnosis for this admission?: YesPlan: See attending physician orders. (8) Chronic gout Qualifiers: Gout site: unspecified site Gout etiology: unspecified cause Presence of tophus: without tophus Qualified Code(s): M1A.9XX0 - Chronic gout, unspecified, without tophus (tophi) Is this a current diagnosis for this admission?: YesPlan: See attending physician orders. (9) Depression Qualifiers: Depression Type: major depressive disorder Active/Remission status: remission status unspecified Is this a current diagnosis for this admission?: YesPlan: See attending physician orders. (10) Chronic constipation Is this a current diagnosis for this admission?: YesPlan: See attending physician orders. (11) Acute on chronic kidney failure Is this a current diagnosis for this admission?: YesPlan: See attending physician orders. (12) Chronic kidney disease, stage V Is this a current diagnosis for this admission?: YesPlan: See attending physician orders. - Time Time Spent with patient: 25-34 minutes Medications reviewed and adjusted accordingly: Yes Within: Other - Inpatient Certification Post Hospital Care: D/C Plastics Process Hand Documentation - Plan Summary Plan Summary: See attending physician orders.
[2016-07-23 00:36] LABS: HEPATITIS C QUANTITATION HCV Not Detected IU/mL (.)
[2016-07-23] MEDS: LANSOPRAZOLE 30 MG TAB.RAP.DR PO SCH (07:39)
[2016-07-23] MEDS: FUROSEMIDE INJ/PF 40 MG/4 ML SDV IV SCH ×2 (07:39→21:31)
[2016-07-23] MEDS: SERTRALINE HCL 50 MG TABLET PO SCH (07:39)
[2016-07-23] MEDS: ENOXAPARIN SODIUM INJ 30 MG/0.3 ML DISP.SYRIN SUBCUT SCH (07:40)
[2016-07-23 14:13] LABS: ANION GAP 14 (5-19); BLOOD UREA NITROGEN 70 mg/dL (7-20); CALCIUM 9.3 mg/dL (8.4-10.2); CARBON DIOXIDE 26 mmol/L (22-30); CHLORIDE 101 mmol/L (98-107); CREATININE RESULT 4.15 mg/dL (0.52-1.25); GLUCOSE 98 mg/dL (75-110); POTASSIUM 4.5 mmol/L (3.6-5.0); SODIUM 140.9 mmol/L (137-145)
--- NOTE | 2016-07-23 15:47 | PDOC PROGRESS REPORT ---
Subjective Progress Note for:: 07/23/16 Subjective:: No chest pain or difficulty with breathing. No nausea, vomiting, or abdominal pain. No fever or chills. There is continue improvement in her bilateral leg swelling. Urine output remain satisfactory. Physical Exam Vital Signs: Temp Pulse Resp BP Pulse Ox 98.9 F 78 20 175/56 H 97 07/23/16 15:14 07/23/16 15:14 07/23/16 15:14 07/23/16 15:14 07/23/16 15:14 Intake & Output 07/22/16 07/23/16 07/24/16 06:59 06:59 06:59 Intake Total 1130 1610 143 Output Total 3200 3800 1100 Balance -2070 -2190 -957 Physical Exam: General appearance: PRESENT: no acute distress, well-developed, well-nourished Head exam: PRESENT: atraumatic, normocephalic Eye exam: PRESENT: conjunctiva pink, EOMI, PERRLA. ABSENT: scleral icterus Neck exam: PRESENT: full ROM. ABSENT: carotid bruit, JVD, lymphadenopathy, thyromegaly Respiratory exam: PRESENT: clear to auscultation main, decreased breath sounds - at lung bases Cardiovascular exam: PRESENT: RRR. ABSENT: diastolic murmur, rubs, systolic murmur Murmur grade: 3 GI/Abdominal exam: PRESENT: normal bowel sounds, soft. ABSENT: distended, guarding, mass, organomegaly, rebound, tenderness Extremities exam: PRESENT: improving bilateral pedal edema Musculoskeletal exam: PRESENT: deformity - related to joint involvement with arthritis Neurological exam: PRESENT: alert, awake, oriented to person, oriented to place , oriented to time, oriented to situation, CN II-XII grossly intact Psychiatric exam: PRESENT: appropriate affect, normal mood. ABSENT: homicidal ideation, suicidal ideation Skin exam: PRESENT: dry, warm Murmur grade: 3 Results Laboratory Results: 07/19/16 19:50 07/23/16 13:22 07/21/16 07/23/16 06:31 13:22 Sodium 140.9 Potassium 4.5 Chloride 101 Carbon Dioxide 26 Anion Gap 14 BUN 70 H Creatinine 4.15 H Est GFR ( Amer) 12 L Est GFR (Non-Af Amer) 10 L Glucose 98 Calcium 9.3 PTH Intact 271 H 07/19/16 07/19/16 19:50 19:50 Creatine Kinase 151 H CK-MB (CK-2) 2.10 Troponin I 0.025 NT-Pro-B Natriuret Pep 3170 H Impressions: Chest X-Ray 07/19/16 00:00 IMPRESSION: CARDIAC ENLARGEMENT WITHOUT FAILURE. Renal Ultrasound 07/20/16 00:00 IMPRESSION: Bilateral kidneys are slightly small in size on ultrasound. Appears to be simple cysts bilaterally. No hydronephrosis. No renal calculi. No definite mass lesions identified. Bladder decompressed with Velez. Venous Doppler Study 07/20/16 00:00 IMPRESSION: NO EVIDENCE DVT OR SVT IN EITHER LEG. Assessment & Plan - Diagnosis (1) HTN (hypertension) Qualifiers: Hypertension type: essential hypertension Qualified Code(s): I10 - Essential (primary) hypertension Is this a current diagnosis for this admission?: YesPlan: See attending physician orders. (2) Osteoarthritis involving multiple joints on both sides of body Is this a current diagnosis for this admission?: YesPlan: See attending physician orders. (3) Chronic pain syndrome Is this a current diagnosis for this admission?: YesPlan: See attending physician orders. Start on Tylenol 650 mg p.o tid prn for pain management (4) Osteoporosis Qualifiers: Osteoporosis type: age-related Presence of current pathological fracture: unspecified Qualified Code(s): M81.0 - Age-related osteoporosis without current pathological fracture Is this a current diagnosis for this admission?: Yes (5) Degenerative disc disease Qualifiers: Mid-cervical spinal level: unspecified Is this a current diagnosis for this admission?: Yes (6) Unsteady gait Is this a current diagnosis for this admission?: Yes (7) Seasonal allergic rhinitis Qualifiers: Allergic rhinitis trigger: unspecified Qualified Code(s): J30.2 - Other seasonal allergic rhinitis Is this a current diagnosis for this admission?: Yes (8) Chronic gout Qualifiers: Gout site: unspecified site Gout etiology: unspecified cause Presence of tophus: without tophus Qualified Code(s): M1A.9XX0 - Chronic gout, unspecified, without tophus (tophi) Is this a current diagnosis for this admission?: Yes (9) Depression Qualifiers: Depression Type: major depressive disorder Active/Remission status: remission status unspecified Is this a current diagnosis for this admission?: Yes (10) Chronic constipation Is this a current diagnosis for this admission?: Yes (11) Acute on chronic kidney failure Is this a current diagnosis for this admission?: YesPlan: Minimal improvement in renal indices. See attending physician orders. (12) Chronic kidney disease, stage V Is this a current diagnosis for this admission?: YesPlan: See attending physician orders. - Time Time Spent with patient: 25-34 minutes Medications reviewed and adjusted accordingly: Yes Anticipated discharge: Home Within: Other - Inpatient Certification Medical Necessity: Need Close Monitoring Due to Risk of Patient Decompensation, Need For Continuous Telemetry Monitoring, Risk of Complication if Not Cared For in Hospital Post Hospital Care: D/C Processing Lead Documentation - Plan Summary Plan Summary: See attending physician orders.
[2016-07-23] MEDS ORDERED: AMLODIPINE BESYLATE 5 MG TABLET PO ONE (22:15)
[2016-07-24] MEDS ORDERED: ACETAMINOPHEN 325 MG TABLET PO PRN (08:29)
[2016-07-24] MEDS: LANSOPRAZOLE 30 MG TAB.RAP.DR PO SCH (10:41)
[2016-07-24] MEDS: SERTRALINE HCL 50 MG TABLET PO SCH (10:41)
[2016-07-24] MEDS: FUROSEMIDE INJ/PF 40 MG/4 ML SDV IV SCH ×2 (10:41→22:20)
[2016-07-24] MEDS: ENOXAPARIN SODIUM INJ 30 MG/0.3 ML DISP.SYRIN SUBCUT SCH (10:42)
--- NOTE | 2016-07-24 13:56 | PDOC PROGRESS REPORT ---
Subjective Progress Note for:: 07/24/16 Subjective:: OOB in chair. No chest pain or difficulty with breathing. No nausea, vomiting, or abdominal pain. No fever or chills. There is continue improvement in her bilateral leg swelling. Urine output remain satisfactory. Physical Exam Vital Signs: Temp Pulse Resp BP Pulse Ox 98.1 F 71 19 114/52 L 100 07/24/16 11:29 07/24/16 11:29 07/24/16 11:29 07/24/16 11:29 07/24/16 11:29 Intake & Output 07/23/16 07/24/16 07/25/16 06:59 06:59 06:59 Intake Total 1610 550 243 Output Total 3800 3250 300 Balance -2190 -2700 -57 Weight 79.7 kg Physical Exam: General appearance: PRESENT: no acute distress, well-developed, well-nourished Head exam: PRESENT: atraumatic, normocephalic Eye exam: PRESENT: conjunctiva pink, EOMI, PERRLA. ABSENT: scleral icterus Neck exam: PRESENT: full ROM. ABSENT: carotid bruit, JVD, lymphadenopathy, thyromegaly Respiratory exam: PRESENT: clear to auscultation main, decreased breath sounds - at lung bases Cardiovascular exam: PRESENT: RRR. ABSENT: diastolic murmur, rubs, systolic murmur Murmur grade: 3 GI/Abdominal exam: PRESENT: normal bowel sounds, soft. ABSENT: distended, guarding, mass, organomegaly, rebound, tenderness Extremities exam: PRESENT: improving bilateral pedal edema Musculoskeletal exam: PRESENT: deformity - related to joint involvement with arthritis Neurological exam: PRESENT: alert, awake, oriented to person, oriented to place , oriented to time, oriented to situation, CN II-XII grossly intact Psychiatric exam: PRESENT: appropriate affect, normal mood. ABSENT: homicidal ideation, suicidal ideation Skin exam: PRESENT: dry, warm Murmur grade: 3 Murmur grade: 3 Results Laboratory Results: 07/19/16 19:50 07/23/16 13:22 07/23/16 13:22 Sodium 140.9 Potassium 4.5 Chloride 101 Carbon Dioxide 26 Anion Gap 14 BUN 70 H Creatinine 4.15 H Est GFR ( Amer) 12 L Est GFR (Non-Af Amer) 10 L Glucose 98 Calcium 9.3 07/19/16 07/19/16 19:50 19:50 Creatine Kinase 151 H CK-MB (CK-2) 2.10 Troponin I 0.025 NT-Pro-B Natriuret Pep 3170 H Impressions: Chest X-Ray 07/19/16 00:00 IMPRESSION: CARDIAC ENLARGEMENT WITHOUT FAILURE. Renal Ultrasound 07/20/16 00:00 IMPRESSION: Bilateral kidneys are slightly small in size on ultrasound. Appears to be simple cysts bilaterally. No hydronephrosis. No renal calculi. No definite mass lesions identified. Bladder decompressed with Velez. Venous Doppler Study 07/20/16 00:00 IMPRESSION: NO EVIDENCE DVT OR SVT IN EITHER LEG. Head CT 07/23/16 00:00 IMPRESSION: Limited by motion. Chronic small vessel changes. Assessment & Plan - Diagnosis (1) HTN (hypertension) Qualifiers: Hypertension type: essential hypertension Qualified Code(s): I10 - Essential (primary) hypertension Is this a current diagnosis for this admission?: YesPlan: See attending physician orders. (2) Osteoarthritis involving multiple joints on both sides of body Is this a current diagnosis for this admission?: YesPlan: See attending physician orders. (3) Chronic pain syndrome Is this a current diagnosis for this admission?: Yes (4) Osteoporosis Qualifiers: Osteoporosis type: age-related Presence of current pathological fracture: unspecified Qualified Code(s): M81.0 - Age-related osteoporosis without current pathological fracture Is this a current diagnosis for this admission?: Yes (5) Degenerative disc disease Qualifiers: Mid-cervical spinal level: unspecified Is this a current diagnosis for this admission?: Yes (6) Unsteady gait Is this a current diagnosis for this admission?: YesPlan: See attending physician orders. (7) Seasonal allergic rhinitis Qualifiers: Allergic rhinitis trigger: unspecified Qualified Code(s): J30.2 - Other seasonal allergic rhinitis Is this a current diagnosis for this admission?: Yes (8) Chronic gout Qualifiers: Gout site: unspecified site Gout etiology: unspecified cause Presence of tophus: without tophus Qualified Code(s): M1A.9XX0 - Chronic gout, unspecified, without tophus (tophi) Is this a current diagnosis for this admission?: Yes (9) Depression Qualifiers: Depression Type: major depressive disorder Active/Remission status: remission status unspecified Is this a current diagnosis for this admission?: Yes (10) Chronic constipation Is this a current diagnosis for this admission?: Yes (11) Acute on chronic kidney failure Is this a current diagnosis for this admission?: YesPlan: See attending physician orders. (12) Chronic kidney disease, stage V Is this a current diagnosis for this admission?: YesPlan: See attending physician orders. - Time Time Spent with patient: 25-34 minutes Medications reviewed and adjusted accordingly: Yes Anticipated discharge: SNF - for short term rehabilitation - Inpatient Certification Medical Necessity: Need Close Monitoring Due to Risk of Patient Decompensation, Need For Continuous Telemetry Monitoring, Risk of Complication if Not Cared For in Hospital - Plan Summary Plan Summary: See attending physician orders.
[2016-07-25 07:19] LABS: ANION GAP 11 (5-19); BLOOD UREA NITROGEN 72 mg/dL (7-20); CALCIUM 8.6 mg/dL (8.4-10.2); CARBON DIOXIDE 27 mmol/L (22-30); CHLORIDE 100 mmol/L (98-107); CREATININE RESULT 4.08 mg/dL (0.52-1.25); GLUCOSE 86 mg/dL (75-110); POTASSIUM 3.9 mmol/L (3.6-5.0); SODIUM 138.4 mmol/L (137-145)
[2016-07-25] MEDS: LANSOPRAZOLE 30 MG TAB.RAP.DR PO SCH (11:31)
[2016-07-25] MEDS: SERTRALINE HCL 50 MG TABLET PO SCH (11:32)
[2016-07-25] MEDS: FUROSEMIDE INJ/PF 40 MG/4 ML SDV IV SCH (11:32)
[2016-07-25] MEDS: ENOXAPARIN SODIUM INJ 30 MG/0.3 ML DISP.SYRIN SUBCUT SCH (11:33)
[2016-07-25] MEDS ORDERED: AMLODIPINE BESYLATE 5 MG TABLET PO ONE (12:30)
--- NOTE | 2016-07-25 13:14 | PDOC PROGRESS REPORT ---
Subjective Progress Note for:: 07/25/16 Subjective:: Patient participate in physical therapy session this morning. No chest pain or difficulty with breathing. No nausea, vomiting, or abdominal pain. No fever or chills. There is continue improvement in her bilateral leg swelling. Urine output remain satisfactory. Physical Exam Vital Signs: Temp Pulse Resp BP Pulse Ox 98.3 F 63 18 144/51 H 100 07/25/16 07:21 07/25/16 07:21 07/25/16 07:21 07/25/16 07:21 07/25/16 07:21 Intake & Output 07/24/16 07/25/16 07/26/16 06:59 06:59 06:59 Intake Total 550 720 Output Total 3250 1000 Balance -2700 -280 Weight 79.7 kg 62.9 kg Physical Exam: General appearance: PRESENT: no acute distress, well-developed, well-nourished Head exam: PRESENT: atraumatic, normocephalic Eye exam: PRESENT: conjunctiva pink, EOMI, PERRLA. ABSENT: scleral icterus Neck exam: PRESENT: full ROM. ABSENT: carotid bruit, JVD, lymphadenopathy, thyromegaly Respiratory exam: PRESENT: clear to auscultation main, decreased breath sounds - at lung bases Cardiovascular exam: PRESENT: RRR. ABSENT: diastolic murmur, rubs, systolic murmur Murmur grade: 3 GI/Abdominal exam: PRESENT: normal bowel sounds, soft. ABSENT: distended, guarding, mass, organomegaly, rebound, tenderness Extremities exam: PRESENT: significant improvement in her bilateral pedal edema Musculoskeletal exam: PRESENT: deformity - related to joint involvement with arthritis Neurological exam: PRESENT: alert, awake, oriented to person, oriented to place , oriented to time, oriented to situation, CN II-XII grossly intact Psychiatric exam: PRESENT: appropriate affect, normal mood. ABSENT: homicidal ideation, suicidal ideation Skin exam: PRESENT: dry, warm Murmur grade: 3 Results Laboratory Results: 07/19/16 19:50 07/25/16 06:28 07/25/16 06:28 Sodium 138.4 Potassium 3.9 Chloride 100 Carbon Dioxide 27 Anion Gap 11 BUN 72 H Creatinine 4.08 H Est GFR ( Amer) 13 L Est GFR (Non-Af Amer) 10 L Glucose 86 Calcium 8.6 07/19/16 07/19/16 19:50 19:50 Creatine Kinase 151 H CK-MB (CK-2) 2.10 Troponin I 0.025 NT-Pro-B Natriuret Pep 3170 H Impressions: Chest X-Ray 07/19/16 00:00 IMPRESSION: CARDIAC ENLARGEMENT WITHOUT FAILURE. Renal Ultrasound 07/20/16 00:00 IMPRESSION: Bilateral kidneys are slightly small in size on ultrasound. Appears to be simple cysts bilaterally. No hydronephrosis. No renal calculi. No definite mass lesions identified. Bladder decompressed with Velez. Venous Doppler Study 07/20/16 00:00 IMPRESSION: NO EVIDENCE DVT OR SVT IN EITHER LEG. Head CT 07/23/16 00:00 IMPRESSION: Limited by motion. Chronic small vessel changes. Assessment & Plan - Diagnosis (1) HTN (hypertension) Qualifiers: Hypertension type: essential hypertension Qualified Code(s): I10 - Essential (primary) hypertension Is this a current diagnosis for this admission?: YesPlan: Maintain on Amlodipine 5 mg p.o daily. See attending physician orders. (2) Osteoarthritis involving multiple joints on both sides of body Is this a current diagnosis for this admission?: YesPlan: See attending physician orders. (3) Chronic pain syndrome Is this a current diagnosis for this admission?: YesPlan: See attending physician orders. Maintain on Tylenol 650 mg p.o tid prn for pain management (4) Osteoporosis Qualifiers: Osteoporosis type: age-related Presence of current pathological fracture: unspecified Qualified Code(s): M81.0 - Age-related osteoporosis without current pathological fracture Is this a current diagnosis for this admission?: Yes (5) Degenerative disc disease Qualifiers: Mid-cervical spinal level: unspecified Is this a current diagnosis for this admission?: Yes (6) Unsteady gait Is this a current diagnosis for this admission?: YesPlan: See attending physician orders. (7) Seasonal allergic rhinitis Qualifiers: Allergic rhinitis trigger: unspecified Qualified Code(s): J30.2 - Other seasonal allergic rhinitis Is this a current diagnosis for this admission?: Yes (8) Chronic gout Qualifiers: Gout site: unspecified site Gout etiology: unspecified cause Presence of tophus: without tophus Qualified Code(s): M1A.9XX0 - Chronic gout, unspecified, without tophus (tophi) Is this a current diagnosis for this admission?: Yes (9) Depression Qualifiers: Depression Type: major depressive disorder Active/Remission status: remission status unspecified Is this a current diagnosis for this admission?: Yes (10) Chronic constipation Is this a current diagnosis for this admission?: Yes (11) Acute on chronic kidney failure Is this a current diagnosis for this admission?: YesPlan: There is slight downward change in renal indices. See attending physician orders. (12) Chronic kidney disease, stage V Is this a current diagnosis for this admission?: YesPlan: D/C IV Lasix. I will start on Lasix 40 mg p.o bid. See attending physician orders. - Time Time Spent with patient: 25-34 minutes Medications reviewed and adjusted accordingly: Yes Anticipated discharge: SNF Within: Other - Inpatient Certification Medical Necessity: Need Close Monitoring Due to Risk of Patient Decompensation, Need For Continuous Telemetry Monitoring, Need for Pain Control, Risk of Complication if Not Cared For in Hospital Post Hospital Care: D/C or Transfer Summary - Plan Summary Plan Summary: Continue efforts at improving renal function. D/C IV Lasix to avoid over depletion of fluid. I will start on oral Lasix therapy and continue fluid restrictions.
[2016-07-25] MEDS: FUROSEMIDE 40 MG TABLET PO SCH (17:41)
--- NOTE | 2016-07-25 18:22 | PDOC PROGRESS REPORT ---
Subjective Progress Note for:: 07/25/16 Subjective:: Patient remains to be clinically stable. She denies any nausea, vomiting, chest pain, nor shortness of breath. Her leg swelling is almost completely resolved. Physical Exam Vital Signs: Temp Pulse Resp BP Pulse Ox 97.9 F 66 18 121/44 L 100 07/25/16 16:15 07/25/16 16:15 07/25/16 16:15 07/25/16 16:15 07/25/16 16:15 Intake & Output 07/24/16 07/25/16 07/26/16 06:59 06:59 06:59 Intake Total 550 720 358 Output Total 3250 1000 300 Balance -2700 -280 58 Weight 79.7 kg 62.9 kg Exam: General appearance: PRESENT: no acute distress, cooperative, well-developed, well-nourished Head exam: PRESENT: atraumatic, normocephalic Eye exam: PRESENT: conjunctiva pink, PERRLA. ABSENT: scleral icterus Neck exam: ABSENT: JVD Respiratory exam: PRESENT: Normal breath sounds. ABSENT: crackles, rales, rhonchi, unlabored, wheezes Cardiovascular exam: PRESENT: Regular rate rhythm -+S1, +S2. ABSENT: diastolic murmur, systolic murmur GI/Abdominal exam: PRESENT: normal bowel sounds, soft. ABSENT: guarding, mass, tenderness Extremities exam: ABSENT: No edema Neurological exam: PRESENT: alert, awake, oriented to person, place and time. Skin exam: PRESENT: dry, warm, Results Laboratory Results: 07/19/16 19:50 07/25/16 06:28 07/25/16 06:28 Sodium 138.4 Potassium 3.9 Chloride 100 Carbon Dioxide 27 Anion Gap 11 BUN 72 H Creatinine 4.08 H Est GFR ( Amer) 13 L Est GFR (Non-Af Amer) 10 L Glucose 86 Calcium 8.6 07/19/16 07/19/16 19:50 19:50 Creatine Kinase 151 H CK-MB (CK-2) 2.10 Troponin I 0.025 NT-Pro-B Natriuret Pep 3170 H Impressions: Chest X-Ray 07/19/16 00:00 IMPRESSION: CARDIAC ENLARGEMENT WITHOUT FAILURE. Renal Ultrasound 07/20/16 00:00 IMPRESSION: Bilateral kidneys are slightly small in size on ultrasound. Appears to be simple cysts bilaterally. No hydronephrosis. No renal calculi. No definite mass lesions identified. Bladder decompressed with Velez. Venous Doppler Study 07/20/16 00:00 IMPRESSION: NO EVIDENCE DVT OR SVT IN EITHER LEG. Head CT 07/23/16 00:00 IMPRESSION: Limited by motion. Chronic small vessel changes. Assessment & Plan - Diagnosis (1) Chronic kidney disease, stage V Is this a current diagnosis for this admission?: YesPlan: Patient most likely has progressively deteriorating chronic kidney disease and now it is stage V. She has mild proteinuria and questionable microhematuria. This is most likely secondary to hypertensive nephrosclerosis. Patient is starting uremic symptoms including somnolence, confusion, and progressive lower extremity edema almost resistant to diuresis her history. The anemia, metabolic acidosis and small size kidneys support the diagnosis of chronic kidney disease. Patient has declined initiation of renal replacement therapy at this time. We will respect her wishes. Since patient is clinically stable, continue current management. Agree with changing the IV Lasix to oral Lasix. She needs to go home with oral Lasix. Once discharged I will be happy to see her for follow-up in my office if she desires. (2) Hypertensive nephrosclerosis Is this a current diagnosis for this admission?: Yes (3) Hypervolemia Is this a current diagnosis for this admission?: YesPlan: Much improved with diuresis. (4) Metabolic acidosis Is this a current diagnosis for this admission?: YesPlan: Resolved. (5) Anemia in chronic kidney disease (CKD) Is this a current diagnosis for this admission?: YesPlan: Iron needs to be corrected prior to initiation of Procrit. Iron panel needs to be repeated as an outpatient. (6) Iron deficiency anemia Is this a current diagnosis for this admission?: YesPlan: 1 dose of IV Feraheme as been given here in the hospital last week. She probably needs to continue with oral iron supplementation as an outpatient. (7) HTN (hypertension) Qualifiers: Hypertension type: essential hypertension Qualified Code(s): I10 - Essential (primary) hypertension Is this a current diagnosis for this admission?: YesPlan: Well controlled. - Notes Notes: We will sign off at this time. Patient may follow-up with me as an outpatient if she desires. - Time Time with patient: 15-25 minutes
[2016-07-26] MEDS: AMLODIPINE BESYLATE 5 MG TABLET PO SCH (11:02)
[2016-07-26] MEDS: SERTRALINE HCL 50 MG TABLET PO SCH (11:02)
[2016-07-26] MEDS: FUROSEMIDE 40 MG TABLET PO SCH ×2 (11:03→17:25)
[2016-07-26] MEDS: ENOXAPARIN SODIUM INJ 30 MG/0.3 ML DISP.SYRIN SUBCUT SCH (11:03)
[2016-07-26] MEDS: LANSOPRAZOLE 30 MG TAB.RAP.DR PO SCH (11:03)
--- NOTE | 2016-07-26 20:06 | PDOC PROGRESS REPORT ---
Subjective Progress Note for:: 07/26/16 Subjective:: No chest pain or difficulty with breathing. She continue to participate in physical therapy program. No nausea, vomiting, or abdominal pain. No fever or chills. There is continue improvement in her bilateral leg swelling. Urine output remain satisfactory off IV Lasix therapy. Physical Exam Vital Signs: Temp Pulse Resp BP Pulse Ox 97.7 F 65 18 143/57 H 100 07/26/16 15:55 07/26/16 15:55 07/26/16 15:55 07/26/16 15:55 07/26/16 15:55 Intake & Output 07/25/16 07/26/16 07/27/16 06:59 06:59 06:59 Intake Total 720 601 600 Output Total 1000 950 725 Balance -280 -349 -125 Weight 62.9 kg 62 kg Physical Exam: General appearance: PRESENT: no acute distress, well-developed, well-nourished Head exam: PRESENT: atraumatic, normocephalic Eye exam: PRESENT: conjunctiva pink, EOMI, PERRLA. ABSENT: scleral icterus Neck exam: PRESENT: full ROM. ABSENT: carotid bruit, JVD, lymphadenopathy, thyromegaly Respiratory exam: PRESENT: clear to auscultation main, decreased breath sounds - at lung bases Cardiovascular exam: PRESENT: RRR. ABSENT: diastolic murmur, rubs, systolic murmur Murmur grade: 3 GI/Abdominal exam: PRESENT: normal bowel sounds, soft. ABSENT: distended, guarding, mass, organomegaly, rebound, tenderness Extremities exam: PRESENT: significant improvement in her bilateral pedal edema Musculoskeletal exam: PRESENT: deformity - related to joint involvement with arthritis Neurological exam: PRESENT: alert, awake, oriented to person, oriented to place , oriented to time, oriented to situation, CN II-XII grossly intact Psychiatric exam: PRESENT: appropriate affect, normal mood. ABSENT: homicidal ideation, suicidal ideation Skin exam: PRESENT: dry, warm Murmur grade: 3 Results Laboratory Results: 07/19/16 19:50 07/25/16 06:28 07/19/16 07/19/16 19:50 19:50 Creatine Kinase 151 H CK-MB (CK-2) 2.10 Troponin I 0.025 NT-Pro-B Natriuret Pep 3170 H Impressions: Chest X-Ray 07/19/16 00:00 IMPRESSION: CARDIAC ENLARGEMENT WITHOUT FAILURE. Renal Ultrasound 07/20/16 00:00 IMPRESSION: Bilateral kidneys are slightly small in size on ultrasound. Appears to be simple cysts bilaterally. No hydronephrosis. No renal calculi. No definite mass lesions identified. Bladder decompressed with Velez. Venous Doppler Study 07/20/16 00:00 IMPRESSION: NO EVIDENCE DVT OR SVT IN EITHER LEG. Head CT 07/23/16 00:00 IMPRESSION: Limited by motion. Chronic small vessel changes. Assessment & Plan - Diagnosis (1) HTN (hypertension) Qualifiers: Hypertension type: essential hypertension Qualified Code(s): I10 - Essential (primary) hypertension Is this a current diagnosis for this admission?: YesPlan: Maintain on Amlodipine and oral Lasix therapy. See attending physician orders. (2) Osteoarthritis involving multiple joints on both sides of body Is this a current diagnosis for this admission?: YesPlan: See attending physician orders. Maintain on Tylenol 650 mg p.o tid prn for pain management. (3) Chronic pain syndrome Is this a current diagnosis for this admission?: YesPlan: See attending physician orders. Maintain on Tylenol 650 mg p.o tid prn for pain management (4) Osteoporosis Qualifiers: Osteoporosis type: age-related Presence of current pathological fracture: unspecified Qualified Code(s): M81.0 - Age-related osteoporosis without current pathological fracture Is this a current diagnosis for this admission?: Yes (5) Degenerative disc disease Qualifiers: Mid-cervical spinal level: unspecified Is this a current diagnosis for this admission?: YesPlan: See attending physician orders. (6) Unsteady gait Is this a current diagnosis for this admission?: YesPlan: See attending physician orders. She has a bed offer made known to me this evening at [facility] for short term rehabilitation. (7) Seasonal allergic rhinitis Qualifiers: Allergic rhinitis trigger: unspecified Qualified Code(s): J30.2 - Other seasonal allergic rhinitis Is this a current diagnosis for this admission?: Yes (8) Chronic gout Qualifiers: Gout site: unspecified site Gout etiology: unspecified cause Presence of tophus: without tophus Qualified Code(s): M1A.9XX0 - Chronic gout, unspecified, without tophus (tophi) Is this a current diagnosis for this admission?: Yes (9) Depression Qualifiers: Depression Type: major depressive disorder Active/Remission status: remission status unspecified Is this a current diagnosis for this admission?: Yes (10) Chronic constipation Is this a current diagnosis for this admission?: Yes (11) Acute on chronic kidney failure Is this a current diagnosis for this admission?: YesPlan: D/C Velez catheter and monitor voiding pattern. See attending physician orders. (12) Chronic kidney disease, stage V Is this a current diagnosis for this admission?: YesPlan: Maintain on oral Lasix 40 mg p.o bid. See attending physician orders. - Time Time Spent with patient: 25-34 minutes Medications reviewed and adjusted accordingly: Yes Anticipated discharge: SNF - for short term physical rebailitation Within: within 24 hours - Inpatient Certification Based on my medical assessment, after consideration of the patient's comorbidities, presenting symptoms, or acuity I expect that the services needed warrant INPATIENT care.: Yes I certify that my determination is in accordance with my understanding of Medicare's requirements for reasonable and necessary INPATIENT services [42 CFR 412.3e].: Yes Medical Necessity: Need Close Monitoring Due to Risk of Patient Decompensation, Need For Continuous Telemetry Monitoring, Need for Pain Control, Risk of Complication if Not Cared For in Hospital Post Hospital Care: D/C or Transfer Summary - Plan Summary Plan Summary: See attending physician orders.
[2016-07-27 05:04] LABS: ANION GAP 11 (5-19); BLOOD UREA NITROGEN 78 mg/dL (7-20); CALCIUM 8.7 mg/dL (8.4-10.2); CARBON DIOXIDE 25 mmol/L (22-30); CHLORIDE 100 mmol/L (98-107); CREATININE RESULT 3.82 mg/dL (0.52-1.25); GLUCOSE 81 mg/dL (75-110); POTASSIUM 4.2 mmol/L (3.6-5.0)
--- NOTE | 2016-07-27 08:38 | PDOC TRANSFER SUMMARY ---
General - Admit/Disc Date/PCP Admission Date/Primary Care Provider: 07/19/16 17:22 FERNANDA THIBODEAUX Discharge Date: 07/27/16 - Discharge Diagnosis (1) HTN (hypertension) Is this a current diagnosis for this admission?: Yes (2) Osteoarthritis involving multiple joints on both sides of body Is this a current diagnosis for this admission?: Yes (3) Chronic pain syndrome Is this a current diagnosis for this admission?: Yes (4) Osteoporosis Is this a current diagnosis for this admission?: Yes (5) Degenerative disc disease Is this a current diagnosis for this admission?: Yes (6) Unsteady gait Is this a current diagnosis for this admission?: Yes (7) Seasonal allergic rhinitis Is this a current diagnosis for this admission?: Yes (8) Chronic gout Is this a current diagnosis for this admission?: Yes (9) Depression Is this a current diagnosis for this admission?: Yes (10) Chronic constipation Is this a current diagnosis for this admission?: Yes (11) Acute on chronic kidney failure Is this a current diagnosis for this admission?: Yes (12) Chronic kidney disease, stage V Is this a current diagnosis for this admission?: Yes - Additional Information Discharge Diet: Other (Comments) - Predialysis renal diet Discharge Activity: Activity As Tolerated, Balance Activity w/Rest, Weigh Daily Home Medications: Acetaminophen [Tylenol Extra Strength 500 mg Tablet] 1,000 mg PO Q8HP PRN #60 tablet 07/27/16 Albuterol Sulfate [Proair HFA] 1 puff IH Q4HP PRN #1 hfa.aer.ad 07/27/16 Amlodipine Besylate [Norvasc 5 mg Tablet] 5 mg PO DAILY #30 tablet 07/27/16 Furosemide [Lasix] 40 mg PO BID #60 tablet 07/27/16 Sertraline HCl [Zoloft 50 mg Tablet] 25 mg PO DAILY #30 tablet 07/27/16 History of Present Illness Admission Date/PCP: 07/19/16 17:22 FERNANDA THIBODEAUX History of Present Illness: GILA BLISS is a 85 year old female with history of hypertension who have made weekly visit to Dr. Thibodeaux's office due to worsening bilateral leg swelling. Despite adjustment in her medication management with regard to diuretics and anti hypertensive medication she continued to deteriorate. Caregiver reported declining functional level due to leg swelling. No chest pain but there is associated exertional shortness of breath. Patient reported 2- 3 pillows orthopnea but denied any PND event. Patient and caregiver reported compliance with dietary salt and fluid restriction although caregiver reported noncompliance wit keeping legs elevated. There is worsening difficulty with transfer abilities. No fever, chills, coughing, nausea, vomiting or diarrhea. She does ambulate minimally in recent time with assistance of walker. Further history reveals that the patient has been having this lower extremity edema which is been progressively worse for the last 2-3 weeks. She was noted by her granddaughter to be sleeping a lot and has decreased appetite. Her granddaughter and daughter were in the room at bedside while I was talking to the patient. Both of them confirmed that the patient has some occasional confusion. Otherwise the patient denies any chest pains, shortness of breath, fatigue, nor any tremors. The family including the patient denied any known kidney problems in the past including kidney stones, hematuria, nor any problem with urination. Daughter said the patient is making good amount of urine. She has a home health nurse who checks on her. Upon admission last night she had a BUN of 82 and creatinine of 4.77 with estimated GFR of 10. The last kidney function on her records were from November 2012 were her BUN run ranged between 30-32 and her creatinine between 1.65-1.94 with estimated GFR of 30-36. Patient has evidence of anemia and mild metabolic acidosis. Her chest x-ray did not reveal any evidence of congestive heart failure. Her urinalysis showed mild proteinuria with questionable blood in the urine because this is most likely from catheterized specimen. Her Doppler did not reveal any DVT of her lower extremities. Her kidney ultrasound showed bilateral small kidneys with the right kidney measuring 7.6 cm and left kidney measuring 8.4 cm with bilateral cysts. Cysts on the right kidney measures 1.03 x 0.8 cm and the left measures 4.6 x 4.18 cm. There is no hydronephrosis. Hospital Course Hospital Course: Patient responded to IV Lasix therapy for forced diuresis. She was seen in consultation by Dr Segura supervisor inspection department for stage V chronic kidney disease. Her blood pressure was initially satisfactory but she subsequently demonstrated elevated blood pressure with need for anti hypertensive medication initiation with Amlodipine at 5 mg p.o daily. The later may need dosage adjustment if blood pressure remain elevated. I had several discussion with daughters and patient regarding benefits and risks of hemodialysis for better management of her chronic kidney disease if there is no significant functional improvement in the future. At present, she decline this procedural intervention. Family expressed wish to relocate patient to [place], [place] for continue care and support upon discharge from SNF. Physical Exam Vital Signs: Temp Pulse Resp BP Pulse Ox 98.3 F 67 20 138/55 H 99 07/27/16 04:38 07/27/16 07:00 07/27/16 04:38 07/27/16 04:38 07/27/16 04:38 Intake & Output 07/26/16 07/27/16 07/28/16 06:59 06:59 06:59 Intake Total 601 900 Output Total 950 1155 Balance -349 -255 Weight 62 kg 70 kg General appearance: PRESENT: no acute distress, cooperative Head exam: PRESENT: atraumatic, normocephalic Eye exam: PRESENT: conjunctiva pink, EOMI, PERRLA. ABSENT: scleral icterus Ear exam: PRESENT: normal external ear exam Mouth exam: PRESENT: moist, tongue midline Neck exam: ABSENT: carotid bruit, JVD, lymphadenopathy, thyromegaly Respiratory exam: PRESENT: clear to auscultation main Cardiovascular exam: PRESENT: RRR. ABSENT: diastolic murmur, rubs, systolic murmur Vascular exam: PRESENT: normal capillary refill GI/Abdominal exam: PRESENT: normal bowel sounds, soft. ABSENT: distended, guarding, mass, organolmegaly, rebound, tenderness Extremities exam: PRESENT: +1 edema - very minimal to periankle and feet egion Musculoskeletal exam: PRESENT: deformity - related to multiple joint involvement with arthritis Neurological exam: PRESENT: alert, awake, abnormal gait - ambulate with rolling walker assistance, CN II-XII grossly intact Psychiatric exam: PRESENT: appropriate affect, normal mood. ABSENT: homicidal ideation, suicidal ideation Results Laboratory Results: 07/19/16 19:50 07/27/16 04:31 07/27/16 04:31 Sodium 136.0 L Potassium 4.2 Chloride 100 Carbon Dioxide 25 Anion Gap 11 BUN 78 H Creatinine 3.82 H Est GFR ( Amer) 14 L Est GFR (Non-Af Amer) 11 L Glucose 81 Calcium 8.7 07/19/16 07/19/16 19:50 19:50 Creatine Kinase 151 H CK-MB (CK-2) 2.10 Troponin I 0.025 NT-Pro-B Natriuret Pep 3170 H Impressions: Chest X-Ray 07/19/16 00:00 IMPRESSION: CARDIAC ENLARGEMENT WITHOUT FAILURE. Renal Ultrasound 07/20/16 00:00 IMPRESSION: Bilateral kidneys are slightly small in size on ultrasound. Appears to be simple cysts bilaterally. No hydronephrosis. No renal calculi. No definite mass lesions identified. Bladder decompressed with Velez. Venous Doppler Study 07/20/16 00:00 IMPRESSION: NO EVIDENCE DVT OR SVT IN EITHER LEG. Head CT 07/23/16 00:00 IMPRESSION: Limited by motion. Chronic small vessel changes. Transfer Plan - Disposition Transfer Plan: [facility] for [facility] term [facility] - Time Spent with Patient Time spent with patient: Greater than 30 Minutes Qualifiers PATEINT BEING DISCHARGED WITH ANY OF THE FOLLOWING DIAGNOSIS?: No Plan Discharge Plan: Transfer to [facility] for short term rehabilitation. Call office for follow up appointment before SNF discharge. Follow up with Dr Segura as instructed upon discharge.
[2016-07-27] MEDS: ENOXAPARIN SODIUM INJ 30 MG/0.3 ML DISP.SYRIN SUBCUT SCH (08:48)
[2016-07-27] MEDS: SERTRALINE HCL 50 MG TABLET PO SCH (09:11)
[2016-07-27] MEDS: LANSOPRAZOLE 30 MG TAB.RAP.DR PO SCH (09:12)
[2016-07-27] MEDS: FUROSEMIDE 40 MG TABLET PO SCH (09:12)
[2016-07-27] MEDS: AMLODIPINE BESYLATE 5 MG TABLET PO SCH (09:13)
[2016-07-27 14:16] VITALS: BP 148/61
== END 2016-07-27 16:48 | DRG 291 ==
LOC: 3S 17:22
PROVIDERS: ADMIT Internal Medicine Geriatric Medicine; ATTEND Internal Medicine Geriatric Medicine
DX: I13.2 Hypertensive heart and chronic kidney disease with heart failure and with stage 5 chronic kidney disease, or end stage renal disease (principal); I50.23 Acute on chronic systolic (congestive) heart failure; N17.9 Acute kidney failure, unspecified; N18.5 Chronic kidney disease, stage 5; E87.2 Acidosis; D63.1 Anemia in chronic kidney disease; E87.70 Fluid overload, unspecified; M81.0 Age-related osteoporosis without current pathological fracture; G89.4 Chronic pain syndrome; M19.90 Unspecified osteoarthritis, unspecified site; M1A.9XX0 Chronic gout, unspecified, without tophus (tophi); K59.09 Other constipation; M50.320 Other cervical disc degeneration, mid-cervical region, unspecified level; R26.81 Unsteadiness on feet; J30.2 Other seasonal allergic rhinitis; F32.9 Major depressive disorder, single episode, unspecified; Z96.653 Presence of artificial knee joint, bilateral
CPT/HCPCS: 36415; 70450; 71020; 76770; 80048; 80053; 81001; 82550; 82553; 82607; 82728; 82746; 83540; 83550; 83735; 83880; 83970; 84100; 84466; 84484; 84550; 85025; 85045; 86317; 86704; 87340; 87522; 93005; 93010; 93306; 93970; G8978-GP; G8979-GP; G8980-GP; J1650; J1940; J3490; Q0138